=== PATIENT | female | born 1960 | race Caucasian/White ===

== ENCOUNTER 2017-10-13 09:13 | Outpatient (CLI) | payer MEDICAID ==
--- NOTE | 2017-10-13 10:57 | XRAY Report ---
TWO VIEW RIGHT HAND: 10/13/2017 CLINICAL INDICATION: Third finger pain, status post trauma. FINDINGS: AP, lateral, oblique views of the right hand demonstrate soft tissue swelling of the distal third finger. No acute fracture is seen. The joint spaces are preserved. No foreign body is seen in the soft tissues. IMPRESSION: SOFT TISSUE SWELLING OF THE THIRD FINGER, BUT NO EVIDENCE OF ACUTE FRACTURE. TD: 10/13/2017 10:50
== END 2017-10-13 09:14 | disposition home or self-care (01) ==
LOC: DI.N 09:13
PROVIDERS: ATTEND Physician Assistant Medical
DX: M79.644 Pain in right finger(s) (principal); M79.89 Other specified soft tissue disorders

== ENCOUNTER 2017-12-19 16:34 | Emergency (ER) | payer MEDICAID ==
--- NOTE | 2017-12-19 17:21 | ED Physician Documentation ---
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 Throat feels scratchy. Review of Systems Constitutional: denies: Fever, Chills Ears: denies: Ear pain Nose: denies: Rhinorrhea / runny nose, Congestion Respiratory: denies: Dyspnea, Cough, Wheezing GI: denies: Abdominal Pain, Nausea, Vomiting Skin: denies: Rash Musculoskeletal: denies: Neck pain, Back pain Neurologic: denies: Headache PD PAST MEDICAL HISTORY - Past Medical History Cardiovascular: None Respiratory: None Endocrine/Autoimmune: None GI: None : None HEENT: Chronic vision loss Psych: None Musculoskeletal: None Derm: None - Past Surgical History /[employer]: Breast implants - Present Medications Home Medications: Ambulatory Orders Medication Instructions Recorded Confirmed No Known Home Medications [No 03/26/16 03/26/16 Known Home Medications] - Allergies Allergies/Adverse Reactions: Allergies Allergy/AdvReac Type Severity Reaction Status Date / Time grape Allergy Respiratory Verified 12/19/17 16:43 oxytetracycline HCl * AdvReac Nausea Verified 03/26/16 07:37 [From Terramycin with Polymyxin B] polymyxin B sulfate * AdvReac Nausea Verified 12/19/17 16:42 [From Terramycin with Polymyxin B] PD ED PE NORMAL - Vitals Vital signs reviewed: Yes - General General: Alert and oriented X 3 - HEENT HEENT: PERRL, Moist mucous membranes, Pharynx benign - Neck Neck: Supple, no meningeal sign - Cardiac Cardiac: RRR, Strong equal pulses - Respiratory Respiratory: No respiratory distress, Clear bilaterally - Abdomen Abdomen: Soft, Non tender, Non distended - Derm Derm: Warm and dry, No rash - Neuro Neuro: Alert and oriented X 3 - Psych Psych: Normal mood Results - Vitals Vitals: Vital Signs - 24 hr 12/19/17 12/19/17 16:39 17:24 Temperature 36.4 C L 37.1 C Heart Rate 74 60 Respiratory 16 16 Rate Blood Pressure 125/64 128/92 H O2 Saturation 99 100 Oxygen O2 Source Room air PD MEDICAL DECISION MAKING - ED course Complexity details: considered differential, d/w patient ED course: Patient is a 57-year-old female with a history of a grape allergy. 8 a popsicle with grape juice in it. Her throat felt scratchy afterwards. No stridor or wheezing. Given prednisone and Benadryl. No anaphylaxis. Will have her follow -up with her doctor for further care. Patient counseled regarding signs and symptoms for which I believe and urgent re-evaluation would be necessary. Patient with good understanding of and agreement to plan and is comfortable going home at this time This document was made in part using voice recognition software. While efforts are made to proofread this document, sound alike and grammatical errors may occur. - Sepsis Event Vital Signs: Vital Signs - 24 hr 12/19/17 12/19/17 16:39 17:24 Temperature 36.4 C L 37.1 C Heart Rate 74 60 Respiratory 16 16 Rate Blood Pressure 125/64 128/92 H O2 Saturation 99 100 Oxygen O2 Source Room air Departure - Departure Disposition: 01 Home, Self Care Clinical Impression: Allergic reaction Qualifiers: Encounter type: initial encounter Qualified Code(s): T78.40XA - Allergy, unspecified, initial encounter Condition: Good Instructions: ED Allergic Reaction Local Other Follow-Up: Oscar Main PA-C [Primary Care Provider] - As Needed Comments: Return if you worsen. This should improve with the medications from today. Discharge Date/Time: 12/19/17 17:55
[2017-12-19 17:24] VITALS: BP 128/92
[2017-12-19] MEDS ORDERED: predniSONE 20 MG TABLET PO STA (17:30)
[2017-12-19] MEDS ORDERED: diphenhydrAMINE 25 MG CAPSULE PO STA (17:30)
== END 2017-12-19 17:55 | disposition home or self-care (01) ==
LOC: ED 16:34
DX: T78.1XXA Other adverse food reactions, not elsewhere classified, initial encounter (principal); X58.XXXA Exposure to other specified factors, initial encounter
CPT/HCPCS: 99282; 99283; J7512

== ENCOUNTER 2020-07-01 14:37 | Outpatient (CLI) | payer MEDICAID ==
--- NOTE | 2020-07-03 12:01 | Mammography Report ---
BILATERAL DIGITAL SCREENING MAMMOGRAM 3D/2D WITH AUGMENTATION: 07/01/2020 CLINICAL: Routine screening. Comparison is made to exam dated: 10/02/2015 mammogram - [facility]. There are sca ttered fibroglandular elements in both breasts. Bilateral breast implants are present. No significant masses, calcifications, or other findings are seen in either breast. There has been no significant interval change. IMPRESSION: NEGATIVE There is no mammographic evidence of malignancy. A 1 year screening mammogram is recommended. This exam was interpreted at Station ID: [id number]. NOTE: For mammograms, a report in lay terms will be sent to the patient. Approximately 15% of breast malignancies will not be visualized mammographically. In the management of a palpable breast mass, a negative mammogram must not discourage biopsy of a clinically suspicious lesion. Electronically Signed By: Dakota Carlos M.D. aty/penrad:07/01/2020 17:29:31 ACR BI-RADS Category 1: Negative 3341F PARENCHYMAL PATTERN: (A) - The breast(s) demonstrate(s) scattered fibroglandular densities. BI-RADS CATEGORY: (1) - 1 RECOMMENDATION: (ANNUAL) - Recommend routine annual screening mammography. [id number] 1 year screening LATERALITY: (B)
== END 2020-07-01 14:38 | disposition home or self-care (01) ==
LOC: DI.N 14:37
PROVIDERS: ATTEND Nurse Practitioner
DX: Z12.31 Encounter for screening mammogram for malignant neoplasm of breast (principal)

== ENCOUNTER 2022-05-05 07:00 | Outpatient (CLI) | payer MEDICAID ==
--- NOTE | 2022-05-06 11:58 | XRAY Report ---
PROCEDURE: Hand 3 View RT INDICATIONS: R 2ND AND 3RD DIGIT PX TECHNIQUE: 3 views of the hand(s) acquired. COMPARISON: None FINDINGS: Bones: No acute fractures or dislocations. No suspicious bony lesions. Soft tissues: No suspicious soft tissue calcifications. IMPRESSION: Right hand without acute fracture or dislocation. If there is persistent clinical concern for a radiographically occult fracture, recommend immobiliza tion and repeat imaging in 10 to 14 days. Reviewed by: Dakota Carlos MD on 05/06/2022 11:56 AM PST Approved by: Dakota Carlos MD on 05/06/2022 11:56 AM PST Station ID: [id number]
== END 2022-05-05 23:59 | disposition home or self-care (01) ==
LOC: DI.N 07:00
PROVIDERS: ATTEND Registered Nurse
DX: M79.644 Pain in right finger(s) (principal)